=== PATIENT | male | born 1970 | race Caucasian/White ===

== ENCOUNTER 2017-04-10 10:44 | Day surgery (SDC) | payer OTHER, BC ==
[~2017-04-10] VITALS: Ht 177.8 cm; Wt 111.4 kg
[2017-04-10 11:13] VITALS: BP 143/93; PULSE 111; TEMP 97.8
[2017-04-10] MEDS ORDERED: ASPI325T6 PO (14:09)
[2017-04-10] MEDS ORDERED: NORCO 325 MG-7.1 TAB PO (14:12)
[2017-04-10 14:55] VITALS: BP 145/90; PULSE 88; TEMP 97.6
[2017-04-10 15:10] VITALS: BP 130/92; PULSE 89
[2017-04-10 15:25] VITALS: BP 135/79; PULSE 86
[2017-04-10 15:40] VITALS: BP 135/86; PULSE 90
[2017-04-10 16:10] VITALS: BP 131/84; PULSE 99
== END 2017-04-10 16:40 | disposition home or self-care (01) ==
LOC: SDCO 10:44
DX: S86.011A Strain of right Achilles tendon, initial encounter (principal); X50.0XXA Overexertion from strenuous movement or load, initial encounter; Y92.89 Other specified places as the place of occurrence of the external cause; E66.9 Obesity, unspecified; Z68.34 Body mass index [BMI] 34.0-34.9, adult; Z80.9 Family history of malignant neoplasm, unspecified; Z83.2 Family history of diseases of the blood and blood-forming organs and certain disorders involving the immune mechanism
CPT/HCPCS: J0360; J0690; J1100; J1170; J1885; J2405; J2704; J2710; J3010; J7120